=== PATIENT | male | born 1970 | race Caucasian/White ===

== ENCOUNTER 2017-06-06 20:57 | Emergency (ER) | payer BC ==
[~2017-06-06] VITALS: Ht 188 cm; Wt 95.5 kg
[~2017-06-06 20:57] MED LIST: BACT800T5 PO; FLUO20SO3 PO; HYDR-3533 PO; NAPR500 PO; TYLE3 PO
[2017-06-06 21:13] VITALS: BP 172/108; PULSE 61; RESP 18; TEMP 97.8; O2SAT 97
[2017-06-06] MEDS ORDERED: FLUO40CA PO (21:30)
[2017-06-06] MEDS ORDERED: NITROGLYCERIN 0.4 MG SL 25 TABS/BTL SL ONE (22:15)
[2017-06-06] MEDS ORDERED: SODIUM CHLOR 0.9% 1000 ML INJ 1,000 ML IV SCH (22:15)
[2017-06-06] MEDS ORDERED: GLUCAGON 1 MG/ML VIAL IV PUSH ONE (22:15)
[2017-06-06] MEDS ORDERED: METOCLOPRAMIDE HCL 10 MG/2 ML VIAL IV PUSH ONE (22:15)
[2017-06-06] MEDS ORDERED: SODIUM CHLORIDE 0.9% FLUSH 10 ML FLUSH IV FLUSH PRN (22:15)
--- NOTE | 2017-06-06 22:27 | RADRPT ---
EXAM DATE/TIME: 06/06/2017 22:15 [place] COMPARISON: No previous studies available for comparison. INDICATIONS : Difficulty breathing after getting a piece of pork chop stuck in his throat. MEDICAL HISTORY : None. SURGICAL HISTORY : None. ENCOUNTER: Initial ACUITY: 1 day PAIN SCORE: 0/10 LOCATION: Bilateral chest FINDINGS: A single view of the chest demonstrates the lungs to be symmetrically aerated without evidence of mas s, infiltrate or effusion. The cardiomediastinal contours are unremarkable. Osseous structures are intact. CONCLUSION: No acute disease. Heriberto Roberts MD on June 06, 2017 at 22:24 Board Certified Radiologist. This report was verified electronically.
[2017-06-06 22:40] VITALS: O2SAT 97
[2017-06-06 22:46] LABS: AUTOMATED NEUTROPHIL # 3.7 TH/MM3 (1.8-7.7); BASOPHIL % 0.5 % (0.0-2.0); EOSINOPHIL # 0.3 TH/MM3 (0-0.4); EOSINOPHIL % 5.2 % (0.0-4.0); HEMATOCRIT 47.2 % (39.0-51.0); HEMOGLOBIN 16.2 GM/DL (13.0-17.0); LYMPH % 22.6 % (9.0-44.0); LYMPHOCYTE # 1.3 TH/MM3 (1.0-4.8); MEAN CELL VOLUME 84.1 FL (80.0-100.0); MEAN CORPUSCULAR HEMOGLOBIN 28.9 PG (27.0-34.0); MEAN CORPUSCULAR HGB CONC 34.4 % (32.0-36.0); MONO % 7.5 % (0.0-8.0); MONOCYTE # 0.4 TH/MM3 (0-0.9); NEUT % 64.2 % (16.0-70.0); PLATELET COUNT 213 TH/MM3 (150-450); RED BLOOD COUNT 5.61 MIL/MM3 (4.50-5.90); RED CELL DISTRIBUTION WIDTH 13.6 % (11.6-17.2); WHITE BLOOD COUNT 5.7 TH/MM3 (4.0-11.0)
[2017-06-06 22:55] LABS: CALCIUM 8.7 MG/DL (8.5-10.1)
[2017-06-06 22:56] LABS: BICARBONATE 25.6 MEQ/L (21.0-32.0)
[2017-06-06 22:58] LABS: INTERNATIONAL NORMALIZED RATIO 1.1 RATIO; PROTHROMBIN TIME - PATIENT 10.7 SEC (9.8-11.6)
[2017-06-06 22:59] LABS: CREATININE 0.97 MG/DL (0.60-1.30)
[2017-06-06] MEDS ORDERED: CARA1SUS3 PO (23:46)
--- NOTE | 2017-06-06 23:46 | PD ---
HPI Chief Complaint: Foreign Body Time Seen by Provider: 22:12 Travel History International Travel<30 days: No Contact w/Intl Traveler<30days: No Traveled to known affect area: No History of Present Illness HPI 46-year-old male presents to the emergency department by private transportation for complaint of large food bolus in the esophagus. Patient states just approximately 1 hour to one half hours prior to arrival to the emergency department he was the pork chop and developed sensation of something being stuck in his esophagus. No choking no aspiration no respiratory symptoms no stridor or hoarseness. Patient states he is attempted to vomit to dislodge the food bolus without success and has had issues with managing his saliva and oral secretions having to expectorate oral secretions. No prior history of esophageal spasm or esophageal stricture or esophageal foreign body. Patient does not follow with a leather coverer. Patient rates discomfort as moderate to severe. PFSH Past Medical History Narrative Medical Anxiety depression oral surgery occasional alcohol use; nursing notes reviewed Anxiety: Yes Depression: Yes Diminished Hearing: No Hypertension: Yes Tetanus Vaccination: < 5 Years Influenza Vaccination: No Past Surgical History Oral Surgery: Yes (wisdom teeth) Other Surgery: Yes (nasal surgery) Social History Alcohol Use: Yes Tobacco Use: No Substance Use: No Allergies-Medications (Allergen,Severity, Reaction): Coded Allergies: No Known Allergies (Unverified Adverse Reaction, Unknown, 06/06/17) Reported Meds & Prescriptions Reported Meds & Active Scripts Active Carafate Liq (Sucralfate) 1 Gm/10 Ml Susp 1 Gm PO QID 3 Days on empty stomach Reported Fluoxetine (Fluoxetine HCl) 40 Mg Cap 40 Cap PO DAILY Review of Systems Except as stated in HPI: all other systems reviewed are Neg Physical Exam Narrative GENERAL: Well-developed well-nourished male no acute distress or respiratory distress; no hoarseness no active drooling at this time. SKIN: Warm and dry. HEAD: Normocephalic. EYES: No scleral icterus. No injection or drainage. NECK: Supple, trachea midline. No JVD or lymphadenopathy. CARDIOVASCULAR: Regular rate and rhythm without murmurs, gallops, or rubs. RESPIRATORY: Breath sounds equal bilaterally. No accessory muscle use. GASTROINTESTINAL: Abdomen soft, non-tender, nondistended. MUSCULOSKELETAL: No cyanosis, or edema. BACK: Nontender without obvious deformity. No CVA tenderness. Data Data Last Documented VS Vital Signs Date Time Temp Pulse Resp B/P (MAP) Pulse Ox O2 Delivery O2 Flow Rate FiO2 06/06/17 23:52 60 16 155/92 (113) 99 06/06/17 22:40 Room Air 06/06/17 21:13 97.8 Orders Orders Basic Metabolic Panel (Bmp) (06/06/17 22:12) Complete Blood Count With Diff (06/06/17 22:12) Iv Access Insert/Monitor (06/06/17 22:12) Oximetry (06/06/17 22:12) Sodium Chloride 0.9% Flush (Ns Flush) (06/06/17 22:15) Chest, Single Ap (06/06/17 22:12) Act Partial Throm Time (Ptt) (06/06/17 22:12) Prothrombin Time / Inr (Pt) (06/06/17 22:12) Metoclopramide Inj (Reglan Inj) (06/06/17 22:15) Glucagon Inj (Glucagon Inj) (06/06/17 22:15) Nitroglycerin Sl (Nitrostat Sl) (06/06/17 22:15) Sodium Chlor 0.9% 1000 Ml Inj (Ns 1000 M (06/06/17 22:15) Ed Discharge Order (06/06/17 23:48) Labs Laboratory Tests Test 06/06/17 22:30 White Blood Count 5.7 TH/MM3 Red Blood Count 5.61 MIL/MM3 Hemoglobin 16.2 GM/DL Hematocrit 47.2 % Mean Corpuscular Volume 84.1 FL Mean Corpuscular Hemoglobin 28.9 PG Mean Corpuscular Hemoglobin Concent 34.4 % Red Cell Distribution Width 13.6 % Platelet Count 213 TH/MM3 Mean Platelet Volume 9.0 FL Neutrophils (%) (Auto) 64.2 % Lymphocytes (%) (Auto) 22.6 % Monocytes (%) (Auto) 7.5 % Eosinophils (%) (Auto) 5.2 % Basophils (%) (Auto) 0.5 % Neutrophils # (Auto) 3.7 TH/MM3 Lymphocytes # (Auto) 1.3 TH/MM3 Monocytes # (Auto) 0.4 TH/MM3 Eosinophils # (Auto) 0.3 TH/MM3 Basophils # (Auto) 0.0 TH/MM3 CBC Comment DIFF FINAL Differential Comment Prothrombin Time 10.7 SEC Prothromb Time International Ratio 1.1 RATIO Activated Partial Thromboplast Time 26.6 SEC Blood Urea Nitrogen 16 MG/DL Creatinine 0.97 MG/DL Random Glucose 94 MG/DL Calcium Level 8.7 MG/DL Sodium Level 139 MEQ/L Potassium Level 4.3 MEQ/L Chloride Level 106 MEQ/L Carbon Dioxide Level 25.6 MEQ/L Anion Gap 7 MEQ/L Estimat Glomerular Filtration Rate 83 ML/MIN [facility] Medical Decision Making Medical Screen Exam Complete: Yes Emergency Medical Condition: Yes Medical Record Reviewed: Yes Differential Diagnosis Retained esophageal food bolus, esophageal spasm, esophageal stricture, esophagitis, unlikely Mary-Black tear or Boerhaave's Narrative Course IV access obtained patient administered Reglan 10 mg IV glucagon 1 mg IV and ordered sublingual nitroglycerin 0.4 mg 1 dose. Patient monitored for effect of medication response After receiving Reglan, glucagon and 1 sublingual nitroglycerin symptoms have resolved patient taking oral hydration well no further sensation of foreign body in the esophagus no chest discomfort no difficulty handling oral secretions no nausea pain has resolved patient taking oral hydration well and has been monitored for 30 minutes after resolution of symptoms and remains asymptomatic patient is stable for outpatient management this time and refer to GI/gastroenterology for upper endoscopy. Patient provided prescription for Carafate as symptoms resolved after Reglan glucagon and nitroglycerin. Patient tolerating oral hydration well. 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 advance as tolerated to bland/brat diet and regular diet Follow-up the leather coverer Take Carafate as prescribed for the next 3 days Follow-up with primary care provider Return to the emergency department for any concerns or change in conditions Avoid nonsteroidal anti-inflammatory medication such as ibuprofen/Advil/Motrin or Aleve/naproxen/Naprosyn Med/Other Pt SpecificInfo: Prescription(s) given Scripts Sucralfate Liq (Carafate Liq) 1 Gm/10 Ml Susp 1 GM PO QID for Duodenal ulcer for 3 Days, #1200 ML 0 Refills on empty stomach Prov: Angeli Joshi MD 06/06/17 Disposition: 01 DISCHARGE HOME Condition: Stable Angeli Joshi MD Jun 06, 2017 23:46
[2017-06-06 23:52] VITALS: BP 155/92
[2017-06-07] MEDS ORDERED: SUCRALFATE 1 GM/10 ML CUP PO ONE
== END 2017-06-06 23:59 | disposition home or self-care (01) ==
LOC: PHED 20:57
DX: K22.4 Dyskinesia of esophagus (principal); I10 Essential (primary) hypertension
CPT/HCPCS: 71045; 80048; 85025; 85610; 85730; 96361; 96374; 96375; 99284; J1610; J2765; J7030